=== PATIENT | female | born 1960 | race Caucasian/White ===

== ENCOUNTER 2022-09-12 01:12 | Day surgery (SDC) | payer BC, SELFPAY ==
[2022-09-01 15:04] VITALS: BMI 27.5
--- NOTE | 2022-09-09 16:02 | PM.HPGS ---
History of Present Illness History of Present Illness Consent: Risks, benefits, and alternatives have been discussed and questions answered. Patient agrees to proceed with procedure. Chief complaint: hx colon polyps,constipation,diarrhea Narrative: Nat [place] is a 62 year old female Referred for colon cancer screening. She has had a colonoscopy in the past at which time I removed polyps. Review of Systems Review of Systems: All systems reviewed & are unremarkable except as noted in HPI and below PMFSH Social History Social History Smoking status: Never smoker Alcohol intake: current Alcohol use details: occasionally Substance use type: does not use Living arrangements: with family Spiritual care concerns: No Meds Home Medications and Allergies Home Medications Medication Instructions Recorded Confirmed Type aspirin 81 mg tablet 81 mg PO DAILY PRN other 09/01/22 09/12/22 History meclizine 25 mg tablet (Dramamine 25 mg PO BID PRN Dizziness Or 09/01/22 09/12/22 History (meclizine)) Vertigo multivitamin with minerals-folic 1 tablet PO DAILY 09/01/22 09/12/22 History acid 0.4 mg tablet Allergies Allergy/AdvReac Type Severity Reaction Status Date / Time bacitracin Allergy Other Verified 09/12/22 12:50 [From Neosporin (vul-dru-knanh)] neomycin Allergy Other Verified 09/12/22 12:50 [From Neosporin (aiv-equ-uepiy)] polymyxin B Allergy Other Verified 09/12/22 12:50 [From Neosporin (rnz-zxq-eopeg)] amoxicillin AdvReac Diarrhea Verified 09/12/22 12:50 Exam Const: General: alert Orientation/consciousness: patient oriented x3 Resp: Auscultation: clear to auscultation bilaterally Cardio: Rhythm: regular rhythm GI: GI Palp: Yes Soft to palpation and No Tenderness to palpation present (GI) Neuro: General: patient oriented x3 Assessment and Plan Assessment and plan (1) Colon cancer screening: Code(s): Z12.11 - Encounter for screening for malignant neoplasm of colon Status: Acute Assessment and Plan: Colonoscopy with possible biopsy or polypectomy or cautery or injection of substances.
[2022-09-12 12:52] VITALS: BP 119/77; PULSE 84; RESP 16; TEMP 36.3; O2SAT 100
[2022-09-12] MEDS: LACTATED RINGERS 1,000 ML 150 ML IV CONT (12:53)
--- NOTE | 2022-09-12 12:54 | P.PNAN_ITS ---
Anes - Initial Pre Proc Eval Procedure: Operation Date: 09/12/22 14:00 Proposed Procedures p Colonoscopy - Zay Chirinos MD Date/Time: 09/12/22 12:54 Surgeon: Zay Chirinos MD Pre Op Diagnosis: hx colon polyps,constipation,diarrhea Patient Data Age: 62 Gender: F Height: 1.65 m Weight: 80.6 kg Last Vital Signs Temp 97.4 F L 09/12/22 12:52 Pulse 84 09/12/22 12:52 Resp 16 09/12/22 12:52 BP 119/77 09/12/22 12:52 Pulse Ox 100 09/12/22 12:52 O2 Del Method Room Air 09/12/22 12:52 Allergies Allergy/AdvReac Type Severity Reaction Status Date / Time bacitracin Allergy Other Verified 09/12/22 12:50 [From Neosporin ([id number]-bkv-jroih)] neomycin Allergy Other Verified 09/12/22 12:50 [From Neosporin (inv-mnt-twvdv)] polymyxin B Allergy Other Verified 09/12/22 12:50 [From Neosporin (pbk-atj-ekgnz)] amoxicillin AdvReac Diarrhea Verified 09/12/22 12:50 Home Medications Medication Instructions Recorded Confirmed Type aspirin 81 mg tablet 81 mg PO DAILY PRN other 09/01/22 09/12/22 History meclizine 25 mg tablet (Dramamine 25 mg PO BID PRN Dizziness Or 09/01/22 09/12/22 History (meclizine)) Vertigo multivitamin with minerals-folic 1 tablet PO DAILY 09/01/22 09/12/22 History acid 0.4 mg tablet Patient hx anesthesia problems: none Family hx anesthesia problems: none Results Review: All pre-operative results and documents have been reviewed as part of the pre- operative evaluation. [facility] Social History Social History Smoking status: Never smoker Alcohol intake: current Alcohol use details: occasionally Substance use type: does not use Living arrangements: with family Spiritual care concerns: No Anes - Eval Final PreProcedure Day of Procedure 09/12/22 12:54 Patient weight: normal Heart: regular rate and rhythm Lungs: clear to auscultation Airway: Mallampati scale class II Neurological: alert and oriented Last oral intake: >/= 8 hours ASA classification: II Emergent: no Anesthetic plan: proceed Anesthesia type and monitoring: general GIVS and standard monitoring Results Review: All pre-operative results and documents have been reviewed as part of the pre- operative evaluation. Informed Consent: The patient's anesthetic plan and its attendant risks and benefits were discussed with the patient/family/POA. Questions were solicited and answers provided to the satisfaction of the patient/family/POA.
[2022-09-12 13:33] VITALS: BP 102/61; PULSE 66; RESP 20; O2SAT 96
[2022-09-12 13:43] VITALS: BP 112/65; PULSE 65; RESP 28; O2SAT 99
[2022-09-12 13:53] VITALS: BP 112/63; PULSE 61; RESP 21; O2SAT 100
== END 2022-09-12 14:03 | disposition home or self-care (01) ==
PROVIDERS: PCP Physician Assistant; Visit Provider Internal Medicine Gastroenterology
PROC: 0DJD8ZZ Inspection of Lower Intestinal Tract, Via Natural or Artificial Opening Endoscopic (ICD-10-PCS; CPT 45378; principal; 2022-09-12 14:00)
DX: Z12.11 Encounter for screening for malignant neoplasm of colon (principal); D12.0 Benign neoplasm of cecum; K59.00 Constipation, unspecified; R19.7 Diarrhea, unspecified; Z79.82 Long term (current) use of aspirin
CPT/HCPCS: 45381; 45385; 88305; J2704; J7120

== ENCOUNTER 2024-03-08 02:37 | Day surgery (SDC) | payer BC, SELFPAY ==
[2024-02-27 12:38] VITALS: BMI 27.4
--- OUTSIDE RECORDS SUMMARY | 2024-03-08 06:29 | XMS_ITS | Data Portability ---
Author Organization [facility], Main Office Address [address] [place] [address] Assessment No assessment recorded. Plan of Treatment Reminders Order Date Submit Date Provider Last Modified By Organization Details Last Modified Time Details Appointments None recorded. Lab TSH + free T4, serum [address] [facility], [address] [place] [address], [address], 3 16:58:02 HbA1c (hemoglobin A1c), blood [address] [facility], [address] [place], [address], 3 16:58:01 lipid panel, serum [address] [facility], [address] [place] [address], [address], 3 16:58:02 CBC w/ auto diff [address] [facility], [address] [place], [address], 3 16:58:02 CMP, serum or plasma [address] [facility], [address] [place] [address], [address], 3 16:58:02 Referral None recorded. Procedures colonoscopy procedure (PROC) 2022 023 JAYCE Chirinos MD, [address], [facility] [address], [place], [address], 3 15:23:16 Surgeries None recorded. Imaging MAMMO, screening, digital, bilateral 2022 023 [email or web address] [facility] ([facility]), [address] [facility], [place], [address], 4 08:36:25 Medication Orders None recorded. Patient TargetsNo targets recorded. Patient InstructionsNo instructions recorded. Reason for Referral None Reported. Results Created Date Observation Date Name Description Value Unit Range Abnormal Flag Note LastModifiedBy Organization Detail LastModifiedTime 09/13/19 23 09/12/2022 colon oscop y proce dure (PROC ) No observ ation record ed. [email or web address] Zay Chirinos MD [address], [place], [address], 02/14/2023 13:57:36 Result Notes None recorded. Problems Name Problem SNOMED Code Status Onset Date Resolution Date Notes Provider Name and Address Organization Details Recorded Time Benign essential hypertension 7856641 Active 2019 GRICEL Lam, [employer] 3 14:37:17 Gastroesophage al reflux disease 661348102 Active 2019 GRICEL Lam, [facility] 3 14:37:19 Prediabetes 497981451 Active 2022 MIHAI Kraft [address] [facility], [facility] [address], [place], [address], [facility] 3 14:48:37 Uterine leiomyoma 95225115 Active 2022 MIHAI Kraft [address] [facility] [address], [place], [address], [employer] 3 14:49:35 Problem Notes None recorded. Procedures Surgical History Date Name Laterality Status Provider Name and Address Organization Details Recorded Time cholecystectomy completed Kristan Becerra RN [facility] 08/11/2022 15:07:16 Imaging Results Imaging Date Name Status LastModified by Organiz ation Details LastModified Time 09/12/2022 colonoscopy procedure (PROC) completed [email or web address] Zay Chirinos MD [address] [facility] [address], [place], [address], 02/14/2023 13:57:36 Procedure Notes None recorded. Medical Equipment None Reported. Allergies Allergen ID Allergen Name Allergen Category Reaction Reaction Severity Criticality Documentation Date Start Date Code Code System Note Provider Name and Address Organization Details Recorded Time 58378 bacitraci n / neomycin / polymyxin B medicatio n hives Not available Not available 04/13/2022 84810 9 RxNorm Not Available [facility] 3 19:45:45 98470 amoxicill in medicatio n Not available Not available Not available 04/13/2022 723 RxNorm Not Available [facility] 3 19:45:45 Medications Name Sig Start Date Stop Date Status Note LastModified by Organization Details LastModified Time amoxicillin 500 mg capsule 03/08 completed Not Available Not Available Not Available azithromyci n 250 mg tablet TAKE 2 TABLETS (500 MG) BY ORAL ROUTE ONCE DAILY FOR 1 DAY THEN 1 TABLET (250 MG) BY ORAL ROUTE ONCE DAILY FOR 4 DAYS 03/28 completed Not Available Not Available Not Available tizanidine 4 mg tablet TAKE 1 TABLET BY MOUTH EVERY 8 HOURS NEEDED FOR MUSCLE SPASM 08/12 completed Not Available Not Available Not Available ondansetron HCl 4 mg tablet PRN 03/28 completed Not Available Not Available Not Available prednisone 20 mg tablet 03/28 completed Not Available Not Available Not Available amlodipine 5 mg tablet TAKE 0.5-1 TABLET BY MOUTH ONCE DAILY as directed 09/28 completed Not Available Not Available Not Available tramadol 50 mg tablet TK 1 T PO Q 6 H 06/09 completed Not Available Not Available Not Available amitriptyli ne 10 mg tablet TAKE 1 TABLET BY MOUTH AT BEDTIME 08/12 completed Not Available Not Available Not Available meclizine 25 mg tablet TAKE 1 TABLET BY MOUTH EVERY 8 HOURS NEEDED FOR DIZZINESS NAUSEA active Not Available Not Available No t Available diazepam 2 mg tablet TAKE 1 2 (ONE HALF) TABLET BY MOUTH TWICE DAILY 08/12 completed Not Available Not Available Not Available cephalexin 500 mg capsule TAKE 1 CAPSULE BY MOUTH FOUR TIMES DAILY FOR 7 DAYS 08/11 completed Not Available Not Available Not Available omeprazole 20 mg capsule,del ayed release TAKE 1 CAPSULE BY MOUTH ONCE DAILY IN THE MORNING 08/12 completed Not Available Not Available Not Available diclofenac sodium 75 mg tablet,oralia yed release 03/08 completed Not Available Not Available Not Available montelukast 10 mg tablet Take 1 tablet every day by oral route. active Not Available Not Available No t Available mupirocin 2 % topical ointment 06/09 completed Not Available Not Available Not Available azelastine 137 mcg (0.1 %) nasal spray 06/09 completed Not Available Not Available Not Available ibuprofen 600 mg tablet 06/12 completed Not Available Not Available Not Available albuterol sulfate HFA 90 mcg/actuati on aerosol inhaler Inhale 2 puffs as needed by inhalatio n route for 17 days. 08/12 completed Not Available Not Available Not Available fluticasone propionate 50 mcg/actuati on nasal spray,suspe nsion 06/09 completed Not Available Not Available Not Available naproxen 500 mg tablet TAKE 1 TABLET BY MOUTH TWICE DAILY 08/12 completed Not Available Not Available Not Available diazepam 5 mg tablet 06/13 completed Not Available Not Available Not Available Suprep Bowel Prep Kit 17.5 gram-3.13 gram-1.6 gram oral solution 11/21 completed Not Available Not Available Not Available BinaxNOW COVID-19 Ag Self Test kit TEST DIRECTED TODAY 08/11 completed Not Available Not Available Not Available Vitals Date Recorded Body weight Body mass index (BMI) Body height Body temperature Heart rate Oxygen saturation Oxygen saturation in Arterial blood by Pulse oximetry Systolic blood pressure Diastolic blood pressure Provider Name and Address Organization Details Last Updated DateTime 3 04681.4 g 30.5 kg/m2 165.1 cm 98.4 [degF] 76 /min 97 % 97 % 116 mm[Hg] 70 mm[Hg] Kristan Becerra RN [place] [facility] 3 14:34:40 Social History Question Answer Notes LastModified by Organizat ion Details LastModified Time Tobacco Smoking Status Never Smoker JESUS [place], [place] [employer] [facility] 08/11/2022 15:03:34 What Is Your Level Of Alcohol Consumption? Occasional [email or web address] Information not available 08/11/2022 What Is Your Level Of Caffeine Consumption? Occasional [email or web address] Information not available 08/11/2022 In The 14 Days Before Symptom Onset, Have You Had Close Contact With A Laboratory-confirm ed COVID-19 While That Case Was Ill? No [email or web address] Information n ot available 08/11/2022 In The 14 Days Before Symptom Onset, Have You Had Close Contact With A Person Who Is Under Investigation For COVID-19 While That Person Was Ill? No [email or web address] Information not available 08/11/2022 Are You Currently Employed? No [email or web address] Information not available 08/11/2022 What Type Of Diet Are You Following? REGULAR [email or web address] Information n ot available 08/11/2022 What Is The Highest Grade Or Level Of School You Have Completed Or The Highest Degree You Have Received? [id number] Information not available 08/11/2022 What Is Your Occupation? Retired [id number] Information not available 04/13/2022 Have There Been Any Changes To Your Family Or Social Situation? No [email or web address] Information no t available 08/11/2022 Are There Any Guns Present In Your Home? No [email or web address] Information not available 08/11/2022 Do You Use Insect Repellent Routinely? No [email or web address] Information not available 08/11/2022 What Is Your Relationship Status? Single [email or web address] Information not available 08/11/2022 Do You Use Your Seat Belt Or Car Seat Routinely? Yes [email or web address] Information not available 08/11/2022 Are You Sexually Active? No [email or web address] Information not available 08/11/2022 Do You Have Smoke And Carbon Monoxide Detectors In Your Home? Yes [email or web address] Information not available 08/11/2022 Are You Passively Exposed To Smoke? No [email or web address] Information no t available 08/11/2022 Are There Any Smokers In Your House? No [email or web address] Information not available 08/11/2022 Do You Feel Stressed (tense, Restless, Nervous, Or Anxious, Or Unable To Sleep At Night)? [id number] [email or web address] Information not available 08/11/2022 Do You Use Any Illicit Or Recreational Drugs? No [email or web address] Information not available 08/11/2022 Do You Use Sunscreen Routinely? Yes Information not available 08/11/2022 Have You Recently Traveled Abroad? No Information not available 08/11/2022 Do You Have Any Dietary Restrictions? No [email or web address] Information not available 08/11/2022 Do You Or Have You Ever Used Any Other Forms Of Tobacco Or Nicotine? No [email or web address] Information not available 08/11/2022 Sex: Unknown Functional Status Question Answer Note LastModified by Organization D etails LastModified Time What is your exercise level? None [email or web address] Information not available 08/11/2022 Mental Status None recorded. Family History Relationship Description Onset Age of this Age Resolved Age Notes LastModified by Organization Details LastModified Time Mother Myocardial infarction [email or web address] Not available 15:03:15 Mother Dementia [email or web address] Not avail able 08/11/2022 15:03:23 Medical History No medical history recorded. Gynecological HistoryNo gynecological history recorded. Obstetrics History GPAL:G 0 P 0 0 0 0 Past Encounters Encounter ID Performer Location Encounter Start Date Encounter Closed Date Diagnosis/Indication Diagnosis SNOMED-CT Code Diagnosis ICD10 Code Diagnosis Note [id number] MIHAI Kraft [facility] [place] [address] [place] [address] 08/12/2022 14:29:10 08/12/2022 14:53:44 Adult health examination 971233512 Z00.00 pt is re-establi shing. last appt 2019. she was living out of the area. Benign ess ential hypertension 4980725 I10 stable now off any medication . no problems Gastroesop hageal reflux disease 440085975 K21.9 stable off medication with no problems. History of polyp of colon 926826715 Z86.010 3 years overdue for f/u colonoscop y. referral back to Dr. Chirinos that completed her prior scopes. she lives in [place], [place] often and hasn't f/u with colon needs. Prediabetes 989885021 R7 3.03 she reports hx of prediabete s. due for labs Thyroid di sorder screening 012906331 Z13.29 screening TFTs due Cholesterol screening 27 5574448 Z13.220 lipid panel due Uterine leiomyoma 880772 05 D25.9 still has large uterine fibroid she has elected to not have surgery to remove in the past. Screening mammography 24 219535 Z12.31 mammogram overdue. Health Concerns Section Related Observation LastModified by Organization Detai ls LastModified Time None Recorded Concern Status LastModified by Organization Details LastModified Time None Recorded Advance Directives Directive None Recorded Payers Encounter Date Sequence Insurance Name Policy Number Policy Lieberman Covered Member ID Lieberman Member ID Guarantor Name 08/12/2022 1 [place] [employer] ([place]) [address] [place] [id number] [place] Notes Date Note Type Note Provider Name and Address Organization Details Recorded Time 3 text/html HypertensionReported bypatient.Onset/Timing:be tter Associated Symptoms:no shortness of breath; no fatigue; no palpitations; no decline in exercise capacity; no snoringReflux/GERDReporte d bypatient.Severity:improv ing Context:non-smoker; no drug/alcohol abuse; no drug alcohol withdrawal; not related to food/drink Associated Symptoms:no frequent coughing; no feeling of fullness/mass in throat; no hoarseness; no food getting stuck; no belching/burping; no vomiting; not vomiting blood; no regurgitation; no shortness of breath; no chest pain; no heartburn; no difficulty swallowing; no pain when swallowing; no bad taste; no decreased appetite; no weight loss; no black/tarry stools; no fatigue; no throat pain wellness, not taking any medicine. needs a colonoscopy because I'm past due . MIHAI Kraft [address] [facility], [facility] [address], [place], [address], [place] [facility] 08/12/2022 14:55:51 OBGyn Episode No OBEpisode recorded.
[2024-03-08 11:57] VITALS: BP 139/71; PULSE 86; RESP 18; TEMP 36.3; O2SAT 100
[2024-03-08] MEDS: LACTATED RINGERS 1,000 ML 150 ML IV CONT (12:18)
--- NOTE | 2024-03-08 12:33 | PM.HPGS ---
History of Present Illness History of Present Illness Consent: Risks, benefits, and alternatives have been discussed and questions answered. Patient agrees to proceed with procedure. Chief complaint: colitis,neoplasm of colon, polyp of colon Narrative: Nat Ibarra is a 63 year old female with cecal polyp in 2022, also since Thanksgiving with diarrhea- diagnosed with colitis and given flagyl/cipro (negative c diff), still with some loose stools Review of Systems Review of Systems: All systems reviewed & are unremarkable except as noted in HPI and below PMFSH Past Medical History Medical History (Updated 03/08/24 @ 12:34 by Bernardo Benson MD) History of colitis Colitis Kidney stones Asthma Surgical History Surgical History History of foot surgery History of D&C History of cholecystectomy Family History Family History Father , age 57 Acute myocardial infarction Diabetes mellitus Hypertension Mother Acute myocardial infarction Sibling , age 61 Pancreatic cancer Social History Social History Smoking status: Never smoker Alcohol intake: current Alcohol use details: occasionally Substance use type: does not use Living arrangements: with family Occupation/Education: occupation 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 Spiritual care concerns: No Meds Home Medications and Allergies Home Medications ?Medication ?Instructions ?Recorded ?Confirmed ?Type aspirin 81 mg tablet 81 mg PO DAILY PRN other 09/01/22 03/08/24 History Allergies Allergy/AdvReac Type Severity Reaction Status Date / Time bacitracin (From Neosporin Allergy Hives Verified 02/27/24 12:37 ([id number]-gbq-ugtga)) neomycin (From Neosporin Allergy Hives Verified 02/27/24 12:37 (qlz-fka-xmgtz)) polymyxin B (From Neosporin Allergy Hives Verified 02/27/24 12:37 (ark-afk-sxmtz)) amoxicillin AdvReac Diarrhea Verified 02/27/24 12:37 Vital Signs Vital Signs - 24 hr 03/08/24 11:57 Temperature 97.4 F L Pulse Rate 86 Respiratory Rate 18 Blood Pressure 139/71 Pulse Oximetry 100 Oxygen Delivery Room Air Exam Const: General: comfortable and no acute distress HENMT: Face/Nose/Sinus: Normal nares present Eyes: General: appearance normal, both eyes and all related structures Neck: Neck: no JVD Resp: Auscultation: clear to auscultation bilaterally Cardio: Rate: regular rate Rhythm: regular rhythm GI: Inspection: non-distended GI Palp: Yes Soft to palpation Skin: General skin exam: normal color Neuro: General: gait normal Speech: normal speech Extrem: General: normal to inspection Psych: Mental Status: mental status grossly normal Assessment and Plan Assessment and plan (1) Cecal polyp: Code(s): K63.5 - Polyp of colon Status: Acute Assessment and Plan: colonoscopy (2) History of colitis: Code(s): Z87.19 - Personal history of other diseases of the digestive system Status: Acute Assessment and Plan: consider random colon bx
--- NOTE | 2024-03-08 12:41 | P.PNAN_ITS ---
Anes - Initial Pre Proc Eval Procedure: Operation Date: 03/08/24 13:00 Proposed Procedures p Colonoscopy - Bernardo Benson MD Date/Time: 03/08/24 12:41 Surgeon: Bernardo Benson MD Pre Op Diagnosis: colitis, screening colon Pre Op Diagnosis: colitis,neoplasm of colon, polyp of colon Patient Data Age: 63 Gender: F Height: 1.65 m Weight: 80.6 kg Last Vital Signs Temp 36.3 C L 03/08/24 11:57 Pulse 86 03/08/24 11:57 Resp 18 03/08/24 11:57 BP 139/71 03/08/24 11:57 Pulse Ox 100 03/08/24 11:57 O2 Del Method Room Air 03/08/24 11:57 Allergies Allergy/AdvReac Type Severity Reaction Status Date / Time bacitracin (From Neosporin Allergy Hives Verified 02/27/24 12:37 (bpa-nnb-fkxvb)) neomycin (From Neosporin Allergy Hives Verified 02/27/24 12:37 (qfj-rbj-fbreb)) polymyxin B (From Neosporin Allergy Hives Verified 02/27/24 12:37 (fwx-lrz-jkbcx)) amoxicillin AdvReac Diarrhea Verified 02/27/24 12:37 Home Medications ?Medication ?Instructions ?Recorded ?Confirmed ?Type aspirin 81 mg tablet 81 mg PO DAILY PRN other 09/01/22 03/08/24 History Patient hx anesthesia problems: none Family hx anesthesia problems: none Results Review: All pre-operative results and documents have been reviewed as part of the pre-operative evaluation. [facility] Past Medical History Medical History History of colitis Colitis Kidney stones Asthma Surgical History Surgical History History of foot surgery History of D&C History of cholecystectomy Family History Family History Father , age 57 Acute myocardial infarction Diabetes mellitus Hypertension Mother Acute myocardial infarction Sibling , age 61 Pancreatic cancer Social History Social History Smoking status: Never smoker Alcohol intake: current Alcohol use details: occasionally Substance use type: does not use Living arrangements: with family Occupation/Education: occupation 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 Informed Consent: The patient's anesthetic plan and its attendant risks and benefits were discussed with the patient/family/POA. Questions were solicited and answers provided to the satisfaction of the patient/family/POA.
[2024-03-08 13:21] VITALS: BP 141/75; PULSE 69; RESP 17; O2SAT 100
[2024-03-08 13:31] VITALS: BP 125/71; PULSE 81; RESP 24; O2SAT 99
[2024-03-08 13:41] VITALS: BP 137/70; PULSE 71; RESP 17; O2SAT 99
== END 2024-03-08 14:14 | disposition home or self-care (01) ==
PROVIDERS: PCP Physician Assistant; Referring Provider Nurse Practitioner Family; Visit Provider Internal Medicine Gastroenterology
PROC: 0DJD8ZZ Inspection of Lower Intestinal Tract, Via Natural or Artificial Opening Endoscopic (ICD-10-PCS; CPT 45378; principal; 2024-03-08 13:00)
DX: Z09 Encounter for follow-up examination after completed treatment for conditions other than malignant neoplasm (principal); D12.0 Benign neoplasm of cecum; K64.8 Other hemorrhoids
CPT/HCPCS: 45385; 88305; J2003; J2704; J7120

== ENCOUNTER 2024-12-11 09:38 | Outpatient (CLI) | payer BC, SELFPAY ==
--- NOTE | ~2024-12-11 | CT_ITS ---
EXAMINATION: CT abdomen pelvis w con DATE: 12/11/2024 10:21 INDICATION: Personal history of other diseases of the digestive tract. TECHNIQUE: Computed tomography (CT) of the abdomen and pelvis was performed with 100 mL Omnipaque 350 intravenous contrast. Automated exposure control and iterative reconstruction technique were employed. The dose-length product was 812.94 mGy-cm. COMPARISON: None. FINDINGS: The visualized portions of the lung bases demonstrate mild atelectasis. There is a 3 mm nodule in left lower lobe, likely benign. No pleural effusion. The heart size is normal. No pericardial effusion. There is a small sliding hiatal hernia. The liver is normal. There are changes of cholecyst ectomy. The spleen, pancreas, adrenal glands, and right kidney are normal. There is a 3 mm cyst in left kidney. There is a 14.9 cm mass in the uterus. The endometrial complex is normal. There are no dilated loops of bowel. The appendix is not visualized. There are no pathologically enlarged lymph nodes. There is no free intraperitoneal fluid. There is mild lumbar spondylosis. IMPRESSION: 1. Small sliding hiatal hernia. 2. 14.9 cm mass in the uterus, consistent with a fibroid. Reviewed, dictated and finalized at location E.
[2024-12-11 10:16] LABS: Estimated Glomerular Filt Rate > 60
--- OUTSIDE RECORDS SUMMARY | 2024-12-11 10:36 | XMS_ITS | Data Portability ---
Author Organization [facility], Main Office Address [address] [place] [address] Assessment No assessment recorded. Plan of Treatment Reminders Order Date Submit Date Provider Last Modified By Organization Details Last Modified Time Details Appointments None recorded. Lab TSH + free T4, serum [address] [facility], [address] [place], [address], 3 16:58:02 HbA1c (hemoglobin A1c), blood [address] [facility], [address] [place], [address], 3 16:58:01 lipid panel, serum [address] Lab, [address] [place], [address], 3 16:58:02 CBC w/ auto diff [address] [facility], [address] [place], [address], 3 16:58:02 CMP, serum or plasma [address] [facility], [address] [place], [address], 3 16:58:02 Referral None recorded. Procedures colonoscopy procedure (PROC) 2022 023 JAYCE Chirinos MD, [address], [place], [address], 3 15:23:16 Surgeries None recorded. Imaging MAMMO, screening, digital, bilateral 2022 023 [email or web address] [facility] ([facility]), [address], [place], [address], 4 08:36:25 Medication Orders None recorded. Patient TargetsNo targets recorded. Patient InstructionsNo instructions recorded. Reason for Referral None Reported. Results Created Date Observation Date Name Description Value Unit Range Abnormal Flag Note LastModifiedBy Organization Detail LastModifiedTime 09/13/1909/12/2022 colon oscop y proce dure (PROC ) No observ ation record ed. [email or web address] Zay Chirinos MD [address], [place], [address], 02/14/2023 13:57:36 Result Notes None recorded. Problems Name Problem SNOMED Code Status Onset Date Resolution Date Notes Provider Name and Address Organization Details Recorded Time Benign essential hypertension 7385263 Active 2019 GRICEL Lam, [facility] 3 14:37:17 Gastroesophage al reflux disease 441978826 Active 2019 GRICEL Lam, [employer] [facility] 3 14:37:19 Prediabetes 270151828 Active 2022 MIHAI Kraft [address], [place], [address], [employer] 3 14:48:37 Uterine leiomyoma 72199652 Active 2022 MIHAI Kraft [address], [place], [address], [facility] 3 14:49:35 Problem Notes None recorded. Procedures Surgical History Date Name Laterality Status Provider Name and Address Organization Details Recorded Time cholecystectomy completed Kristan Becerra RN [facility] 08/11/2022 15:07:16 Imaging Results None recorded. Procedure Notes None recorded. Medical Equipment None Reported. Allergies Allergen ID Allergen Name Allergen Category Reaction Reaction Severity Criticality Documentation Date Start Date Code Code System Note Provider Name and Address Organization Details Recorded Time 72455 bacitraci n / neomycin / polymyxin B medicatio n hives Not available Not available 04/13/2022 54874 9 RxNorm Not Available [facility] 3 19:45:45 81815 amoxicill in medicatio n Not available Not available Not available 04/13/2022 723 RxNorm Not Available [facility] 3 19:45:45 Medications Name Sig Start Date [...] Available Not Available diclofenac sodium 75 mg tablet,roalia yed release 03/08 completed Not Available Not [...] in Arterial blood by Pulse oximetry Systolic And Diastolic Provider Name and Address Organization Details Last Updated DateTime 3 27755.4 g 30.5 kg/m2 165.1 cm 98.4 [degF] 76 /min 97 % 97 % 116/70 mm[Hg] Kristan Becerra RN [facility] 3 14:34:40 Social History Question Answer Notes LastModified by Organizat ion Details LastModified Time Tobacco Smoking Status Never Smoker Kristan Becerra RN null, [facility] 08/11/2022 15:03:34 What Is Your Level Of Caffeine Consumption? Occasional [email or web address] Information not available 08/11/2022 In The 14 Days Before Symptom Onset, Have You Had Close Contact With A Laboratory-confirm ed COVID-19 While That Case Was Ill? No [email or web address] Information n ot available 08/11/2022 In The 14 Days Before Symptom Onset, Have You Had Close Contact With A Person Who Is Under Investigation For COVID-19 While That Person Was Ill? No [email or web address] Information not available 08/11/2022 What Type Of Diet Are You Following? REGULAR [email or web address] Information n ot available 08/11/2022 What Is The Highest Grade Or Level Of School You Have Completed Or The Highest Degree You Have Received? JH40950-6 [email or web address] Information not available 08/11/2022 Have There Been Any Changes To Your Family Or Social Situation? No [email or web address] Information no t available 08/11/2022 Are There Any Guns Present In Your Home? No [email or web address] Information not available 08/11/2022 Do You Use Insect Repellent Routinely? No [email or web address] Information not available 08/11/2022 What Is Your Relationship Status? Single Information not available 08/11/2022 Do You Use Your Seat Belt Or Car Seat Routinely? Yes [email or web address] Information not available 08/11/2022 Are You Sexually Active? No [email or web address] Information not available 08/11/2022 Do You Have Smoke And Carbon Monoxide Detectors In Your Home? Yes [email or web address] Information not available 08/11/2022 Are You Passively Exposed To Smoke? No [email or web address] Information no t available 08/11/2022 Are There Any Smokers In Your House? No [email or web address] Information not available 08/11/2022 Do You Use Sunscreen Routinely? Yes [email or web address] Information not available 08/11/2022 Have You Recently Traveled Abroad? No [email or web address] Information not available 08/11/2022 Do You Have Any Dietary Restrictions? No [email or web address] Information not available 08/11/2022 Sex: Unknown Functional Status Question Answer Note LastModified by Organizat ion Details LastModified Time Do you use any illicit or recreational drugs? No [email or web address] Information not available 08/11/2022 Do you or have you ever used any other forms of tobacco or nicotine? No [email or web address] Information not available 08/11/2022 What is your level of alcohol consumption? Occasional [email or web address] Information not available 08/11/2022 Are you currently employed? No [email or web address] Information not available 08/11/2022 What is your occupation? retired [id number] Information not available 04/13/2022 What is your exercise level? None [email or web address] Information not available 08/11/2022 Mental Status Question Answer Note LastModified by Organization D etails LastModified Time Do you feel stressed (tense, restless, nervous, or anxious, or unable to sleep at night)? [id number] ham Information not available 08/11/2022 Family History Relationship Description Onset Age of this Age Resolved Age Notes LastModified by Organization Details LastModified Time Mother Myocardial infarction [email or web address] Not available 15:03:15 Mother Dementia [email or web address] Not avail able 08/11/2022 15:03:23 Medical History No medical history recorded. Gynecological HistoryNo gynecological history recorded. Obstetrics History GPAL:G 0 P 0 0 0 0 Past Encounters Encounter ID Performer Location Encounter Start Date Encounter Closed Date Diagnosis/Indication Diagnosis SNOMED-CT Code Diagnosis ICD10 Code Diagnosis IMO Codes Diagnosis Note [id number] MIHAI Kraft [facility] [address] [place] [address] 08/12/2022 14:29:10 08/12/2022 14:53:44 Adult health examination 484434212 Z00.00 pt is re-establi shing. last appt 2019. [place] was living out of the area. Benign ess ential hypertension 1276078 I10 stable now off any medication . no problems Gastroesop hageal reflux disease 405446212 K21.9 stable off medication with no problems. History of polyp of colon 594685735 Z86.010 3 years overdue for f/u colonoscop y. referral back to Dr. Chirinos that completed her prior scopes. she lives in [place] often and hasn't f/u with colon needs. Prediabetes 703650084 R7 3.03 she reports hx of prediabete s. due for labs Thyroid di sorder screening 056376555 Z13.29 screening TFTs due Cholesterol screening 27 8820372 Z13.220 lipid panel due Uterine leiomyoma 446310 05 D25.9 still has large uterine fibroid she has elected to not have surgery to remove in the past. Screening mammography 24 594292 Z12.31 mammogram overdue. Health Concerns Section Related Observation LastModified by Organization Detai ls LastModified Time None Recorded Concern Status LastModified by Organization Details LastModified Time None Recorded Advance Directives Directive None Recorded Payers Insurance Date Sequence Insurance Name Policy Number Policy Lieberman Covered Member ID Lieberman Member ID Guarantor Name 08/11/2022 1 [place] [id number] Nat Violeta Sergio [id number] [place] Notes Date Note Type Note Provider Name and Address Organization Details Recorded Time 3 text/html HypertensionReported by PatientHPIFor onset/timing, patient reportsbetter. For associated symptoms, patient reportsno shortness of breath,no fatigue,no palpitations,no decline in exercise capacity, andno snoring. Reflux/GERDReported by PatientHPIFor severity, patient reportsimproving. For context, patient reportsnon-smoker,no drug/alcohol abuse,no drug alcohol withdrawal, andnot related to food/drink. For associated symptoms, patient reportsno frequent coughing,no feeling of fullness/mass in throat,no hoarseness,no food getting stuck,no belching/burping,no vomiting,not vomiting blood,no regurgitation,no shortness of breath,no chest pain,no heartburn,no difficulty swallowing,no pain when swallowing,no bad taste,no decreased appetite,no weight loss,no black/tarry stools,no fatigue, andno throat pain. wellness, not taking any medicine. needs a colonoscopy because I'm past due. MIHAI Kraft [address], [place], [address], [facility] [employer] 08/12/2022 14:55:51 OBGyn Episode No OBEpisode recorded.
--- OUTSIDE RECORDS SUMMARY | 2024-12-11 10:36 | XMS_ITS | Clinical Summary ---
Author Organization [facility] Address [address] [place] [address] Care Team Providers Care [employer]ating [employer]or Name Role Phone Unavailable Primary Care Provider Unavailabl e Source Comments [facility],non-owned Affiliates and Associated Physician Practices is amultiple site organization consisting of ambulatory clinics and hospital sitesin [place], [place], [place] and [place]. This disclosure is being madepursuant to the Care Everywhere program and may not contain all information available regarding this patient. Last updated 17.[facility] Allergies Active Allergy Reactions Criticality Noted Date Comments Amoxicillin Diarrhea 10/25/2020 Atropine Sulfate Rash High 06/27/2017 Imwrbndi-Xvwwfgu-Djsjflbb Rash Medium 10/25/2020 Medications * Be aware that medications may not be up to date on this document. Alwaysverify current medications with the patient. albuterol HFA (PROVENTIL; VENTOLIN; PROAIR) 108 (90 Base) MCG/ACT inhaler Inhale 2 (two) puffs by mouth every 6 hours as needed 18 g 1 Active Additional Information Patient not taking.Reported on 10/20/2021 benzonatate (TESSALON) 100 MG capsule Take 1 (one) capsule by mouth 3 times daily as needed for Cough 30 capsule 1 Active Additional Information Patient not taking.Reported on 10/20/2021 azithromycin (ZITHROMAX) 250 MG tablet Take 2 tbs on day 1, then 1 tb on days 2 through 5. 6 tablet 1 Active Additional Information Patient not taking.Reported on 10/20/2021 methylPREDNISol one (MEDROL DOSEPAK) 4 MG tablet Take by mouth as directed 1 Each 12/03/202 1 Active Additional Information Patient not taking.Reported on 10/20/2021 Ascorbic Acid 100 MG Take by mouth once daily Active Cholecalciferol 25 MCG (1000 UT) Take 1,000 Units by mouth once daily Active naproxen (Naprosyn) 500 MG tablet Take 1 (one) tablet by mouth 2 times daily 60 tablet 2 Active tiZANidine (Zanaflex) 4 MG tablet Take 1 (one) tablet by mouth every 8 hours as needed for Muscle Spasms 30 tablet 2 Active Social History Tobacco Use Types Packs/Day Years Used Date Smoking Tobacco: Never Smokeless Tobacco: Never Alcohol Use Standard Drinks/Week Comments Yes 0 (1 standard drink = 0.6 oz pur e alcohol) PHQ-2 Answer Date Recorded PHQ2 TOTAL SCORE 0 10/20/2021 Comments No Sex and Gender Information Value Date Recorded Sex Assigned at Not on file 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 Gender Identity Not on file Sexual Orientation Not on file Last Filed Vital Signs Vital Sign Reading Time Taken Comments Blood Pressure 127/75 10/20/2021 3:49 PM CDT Pulse 80 10/20/2021 3:49 PM CDT Temperature 36.7 C (98.1 F) 10/20/2021 3:49 PM CDT Respiratory Rate 20 10/20/2021 3:49 PM CDT Oxygen Saturation 98% 10/20/2021 3:49 PM CDT Inhaled Oxygen Concentration - - Weight 64 kg (141 lb) 10/20/2021 3:49 PM CDT Height 165.1 cm (5' 5) 10/20/2021 3:49 PM CDT Body Mass Index 23.46 10/20/2021 3:49 PM CDT Plan of Treatment Health Maintenance Due Date Last Done Comments COLOGUARD (AGES 45-75) - COL ON CA SCREENING 1960 COLON MONITORING 1960 COLONOSCOPY - COLON CA SCREENING 1960 CT COLONOGRAPHY - COLON CA SCREENING 1960 Colorectal Cancer Screening 1960 FIT - COLON CA SCREENING 1960 FLEX SIG - COLON CA SCREENING 1960 LIPID TESTING 1960 MAMMOGRAM 1960 HIV SCREENING 07/12/1975 HEPATITIS C SCREENING 07/07/1978 DTAP/TDAP/TD VACCINES (1 - Tdap) 07/12/1979 PAP SMEAR 1981 PNEUMOCOCCAL VACCINE 50+ (1 of 1 - PCV) 2010 ZOSTER VACCINE (1 of 2) 2010 DEPRESSION SCREENING 02/14/2024 10/20/2021 COVID-19 VACCINE (1 - 2023-2 5 season) 2024 INFLUENZA VACCINE (#1) 2024 03/09/2021 Respiratory Syncytial Virus (RSV) Vaccine Pt: or over 60 yrs (1 - 1-dose 75+ series) 07/12/2035 HEPATITIS B VACCINE Aged Out No longe r eligible based on patient's age to complete this topic HIB VACCINE Aged Out No longer eligi ble based on patient's age to complete this topic HPV VACCINE Aged Out No longer eligi ble based on patient's age to complete this topic MENINGOCOCCAL (Group B) VACC INE SHARED DECISION-MAKING Aged Out No longer eligibl e based on patient's age to complete this topic MENINGOCOCCAL GROUPS A/C/Y/W VACCINE Aged Out No longer eligible b ased on patient's age to complete this topic Insurance [employer] [id number] [facility] * Guarantor: NAT SMITH Account Type Relation to Patient Date of Phone Billing Address Personal/Family Spouse
== END 2024-12-11 09:39 | disposition home or self-care (01) ==
PROVIDERS: PCP Physician Assistant; Visit Provider Nurse Practitioner Family
DX: R10.30 Lower abdominal pain, unspecified (principal); Z87.19 Personal history of other diseases of the digestive system; R19.7 Diarrhea, unspecified; R19.4 Change in bowel habit; K44.9 Diaphragmatic hernia without obstruction or gangrene
CPT/HCPCS: 74177; Q9967